=== PATIENT | male | born 1960 | race Two or more races ===

== ENCOUNTER 2024-03-16 20:52 | Emergency (ER) | payer OTHER ==
[~2024-03-16] VITALS: Ht 175.3 cm; Wt 90.7 kg
[2024-03-16] MEDS ORDERED: MORPHINE SULFATE INJ 2 MG/ML DISP.SYRIN ONE (21:16)
[2024-03-16] MEDS: IV NS 0.9% 1,000 ML BAG IV ONE (21:40)
[2024-03-16] MEDS: MORPHINE SULFATE INJ 2 MG/ML DISP.SYRIN IV ONE (21:44)
[2024-03-16 21:53] LABS: BASOPHILS % (AUTO) 0.2 % (0.0-2.0); EOSINOPHILS % (AUTO) 0.2 % (0.0-6.0); HEMATOCRIT 43 % (39-51); HEMOGLOBIN 14.5 g/dL (13.5-17.5); LYMPHOCYTES # (AUTO) 1.4 K/uL (0.8-4.8); LYMPHOCYTES % (AUTO) 16.7 % (20.0-44.0); MEAN CORPUSCULAR HEMOGLOBIN 32 PG (26.0-33.0); MEAN CORPUSCULAR HGB CONC 34 g/dl (31.0-36.0); MEAN CORPUSCULAR VOLUME 94 fL (80-96); MONOCYTES # (AUTO) 0.7 K/uL (0.1-1.30); MONOCYTES % (AUTO) 8.1 % (2.0-12.0); NEUTROPHILS # (AUTO) 6.5 K/uL (1.8-8.9); NEUTROPHILS % (AUTO) 74.8 % (43.0-81.0); PLATELET COUNT (AUTO) 170 K/uL (150-450); RED BLOOD CELL COUNT(AUTO) 4.58 MIL/uL (4.5-6.0); RED CELL DISTRIBUTION WIDTH 15.1 % (11.5-15.0); WHITE BLOOD COUNT (AUTO) 8.7 K/uL (4.3-11.0)
[2024-03-16 22:07] LABS: CALCIUM, SERUM 9.9 mg/dL (8.5-10.1); CREATININE 1.6 mg/dL (0.6-1.3); POTASSIUM 3.5 mmol/L (3.5-5.1)
[2024-03-16 22:15] LABS: ALBUMIN 3.5 g/dL (3.4-5.0); BILIRUBIN,DIRECT 0.1 mg/dL (0.0-0.2); BILIRUBIN,TOTAL 0.4 mg/dL (0.2-1.0); TOTAL PROTEIN, SERUM 7.3 g/dL (6.4-8.2)
[2024-03-16] MEDS ORDERED: MINERAL OIL 133 ML (PYXIS) 1 EA ENEMA RC ONE (23:40)
[2024-03-16] MEDS: MINERAL OIL 133 ML (PYXIS) 1 EA ENEMA RC ONE (23:55)
[2024-03-16] MEDS ORDERED: LACTULOSE 10 G/15 ML UDC (PYXIS) ONE (23:56)
[2024-03-16] MEDS: LACTULOSE 10 G/15 ML UDC (PYXIS) PO ONE (23:56)
[2024-03-17] MEDS ORDERED: MAGNESIUM CITRATE 296 ML BOTTLE PO ONE
[2024-03-17 02:00] VITALS: BP 150/83; TEMP 98.3; O2SAT 98
== END 2024-03-17 02:01 | disposition home or self-care (01) ==
LOC: ER 20:54
DX: K59.00 Constipation, unspecified (principal); R10.32 Left lower quadrant pain; E86.0 Dehydration; I10 Essential (primary) hypertension; Z86.59 Personal history of other mental and behavioral disorders; Z87.448 Personal history of other diseases of urinary system
CPT/HCPCS: 99285; 74176; 96374; 96361; 85025; 80048; 83690; 80076; 36415; J7030; J2270